=== PATIENT | female | born 1965 | race Hispanic/Latino ===

== ENCOUNTER → 2017-07-04 | Outpatient (CLI) | payer OTHER, BC ==
[2017-07-04 16:14] LABS: CREATININE 0.8 mg/dL (0.5-1.5)
== END | disposition home or self-care (01) ==
LOC: LAB 10:00
PROVIDERS: ATTEND Internal Medicine Nephrology
DX: R59.9 Enlarged lymph nodes, unspecified (principal)
CPT/HCPCS: 36415; 82565; 84520

== ENCOUNTER → 2017-07-16 | Outpatient (CLI) | payer OTHER, BC ==
[~2017-07-16] MED LIST: ISOVUE-370 50ML VIAL IV ONE
== END | disposition home or self-care (01) ==
LOC: OIH 08:58
PROVIDERS: ATTEND Internal Medicine Nephrology
DX: R59.9 Enlarged lymph nodes, unspecified (principal)
CPT/HCPCS: 70491; Q9967

== ENCOUNTER 2019-06-04 07:08 | Emergency (ER) | payer OTHER, BC ==
[2019-06-04] MEDS ORDERED: IOHEXOL-350 50ML VIAL IV ONE (07:57)
[2019-06-04] MEDS ORDERED: ONDANSETRON HCL 4 MG/2 ML VIAL ONE (08:00)
[2019-06-04] MEDS ORDERED: KETOROLAC TROMETHAMINE 30MG/ML ONE (08:01)
[2019-06-04] MEDS ORDERED: SODIUM CHLORIDE 0.9% 100 ML IV ONE (08:01)
[2019-06-04] MEDS ORDERED: CEFTRIAXONE SODIUM 1 GM ONE (08:01)
[2019-06-04] MEDS ORDERED: SODIUM CHLORIDE 0.9% 1000ML 1,000 ML IV ONE (08:01)
[2019-06-04 08:14] LABS: BASOPHILS % (AUTO) 0.4 % (0.0-5.0); EOSINOPHILS % (AUTO) 0.4 % (0.0-8.0); HEMATOCRIT 40.3 % (36-48); LYMPHOCYTES % (AUTO) 10.5 % (21.0-51.0); MEAN CORPUSCULAR HEMOGLOBIN 28.5 pg (27.0-33.0); MEAN CORPUSCULAR HGB CONC 32.5 g/dL (32.0-36.0); MEAN CORPUSCULAR VOLUME 87.8 fL (79-99); NEUTROPHILS % (AUTO) 83.5 % (40.0-77.0); PLATELET COUNT (AUTO) 206 K/uL (130-400); RED BLOOD CELL COUNT(AUTO) 4.59 MIL/uL (4.00-5.50); RED CELL DISTRIBUTION WIDTH 12.8 % (11.0-15.5); WHITE BLOOD COUNT (AUTO) 8.6 K/uL (4.8-10.8)
[2019-06-04 08:30] LABS: ALBUMIN 3.8 g/dL (3.5-5.0); BILIRUBIN,TOTAL 0.5 mg/dL (0.2-1.0); CREATININE 0.7 mg/dL (0.5-1.5); POTASSIUM 3.7 mmol/L (3.5-5.1)
[2019-06-04] MEDS ORDERED: CLINDAMYCIN 600 MG/D5% WATER 50 ML IV ONE (10:01)
== END 2019-06-04 11:16 | disposition home or self-care (01) ==
LOC: EDH 07:08
DX: K11.20 Sialoadenitis, unspecified (principal); I10 Essential (primary) hypertension
CPT/HCPCS: 36415; 70487; 80053; 85025; 86735; 87040; 96365; 96375; 99285; J0696; J1885; J2405; J3490; J7030; Q9967; 96361

== ENCOUNTER → 2019-11-18 | Outpatient (CLI) | payer OTHER, BC ==
[~2019-11-18] MED LIST changes: +BUPIVACAINE/PF 0.25% 30ML VIAL IJ ONE; +CEFAZOLIN SODIUM 1 GM VIAL ONE; -ISOVUE-370 50ML VIAL IV ONE; +LIDOCAINE HCL 1% MDV 50ML VIAL ONE; +MEPERIDINE-PF 25 MG/ML SYG ONE; +MIDAZOLAM HCL 1 MG/ML 2ML VIAL ONE
== END | disposition home or self-care (01) ==
LOC: RAH 07:52
PROVIDERS: ATTEND Internal Medicine Nephrology
DX: K80.20 Calculus of gallbladder without cholecystitis without obstruction (principal); K76.0 Fatty (change of) liver, not elsewhere classified; R16.0 Hepatomegaly, not elsewhere classified; R06.02 Shortness of breath; M47.814 Spondylosis without myelopathy or radiculopathy, thoracic region
CPT/HCPCS: 71046; 76700; J0690; J2175; J2250; J3490

== ENCOUNTER 2020-07-22 06:29 | Emergency (ER) | payer OTHER, BC ==
[2020-07-22 07:01] LABS: BASOPHILS % (AUTO) 0.4 % (0.0-5.0); EOSINOPHILS % (AUTO) 1.8 % (0.0-8.0); HEMATOCRIT 39.1 % (36-48); LYMPHOCYTES % (AUTO) 36.4 % (21.0-51.0); MEAN CORPUSCULAR HEMOGLOBIN 27.6 pg (27.0-33.0); MEAN CORPUSCULAR VOLUME 86.3 fL (79-99); MONOCYTES % (AUTO) 7.5 % (3.0-13.0); NEUTROPHILS % (AUTO) 53.4 % (40.0-77.0); PLATELET COUNT (AUTO) 242 K/uL (130-400); RED BLOOD CELL COUNT(AUTO) 4.53 MIL/uL (4.00-5.50); RED CELL DISTRIBUTION WIDTH 13.4 % (11.0-15.5); WHITE BLOOD COUNT (AUTO) 7.3 K/uL (4.8-10.8)
[2020-07-22 07:15] LABS: INR 0.97 (0.85-1.15); PROTHROMBIN TIME 10.6 SEC (9.6-11.6)
[2020-07-22 07:19] LABS: ALBUMIN 3.7 g/dL (3.5-5.0); BILIRUBIN,TOTAL 0.3 mg/dL (0.2-1.0); CREATININE 0.8 mg/dL (0.5-1.5); POTASSIUM 3.3 mmol/L (3.5-5.1); TOTAL PROTEIN, SERUM 7.9 g/dL (6.0-8.3)
== END 2020-07-22 11:27 | disposition home or self-care (01) ==
LOC: EDH 06:29
DX: M54.10 Radiculopathy, site unspecified (principal); R20.0 Anesthesia of skin; Z85.3 Personal history of malignant neoplasm of breast; Z88.8 Allergy status to other drugs, medicaments and biological substances
CPT/HCPCS: 36415; 71045; 72040; 80053; 82550; 82948; 83721; 84484; 85025; 85610; 85730; 93005